=== PATIENT | male | born 1970 | race Caucasian/White ===

== ENCOUNTER 2016-09-23 09:12 | Emergency (ER) | payer MEDICAID ==
[2016-09-23 09:19] VITALS: TEMP 97.2
[2016-09-23] MEDS ORDERED: METOCLOPRAMIDE 10 MG/2 ML VIAL IVP ONE (09:40)
[2016-09-23] MEDS ORDERED: NS 1,000 ML IV ONE (09:40)
[2016-09-23] MEDS ORDERED: DEXAMETHASONE 10 MG/ML VIAL IVP ONE (09:40)
--- NOTE | 2016-09-23 09:45 | EDPHY ---
H & P Stated Complaint: "persistent migraine" h/a started 3 days ago no trauma, hx migraines Source: Patient Exam Limitations: No limitations - Personal History Current Tetanus/Diphtheria Vaccine: Yes Current Tetanus Diphtheria and Acellular Pertussis (TDAP): Yes Tetanus Vaccine Date: 2009 - Medical/Surgical History Hx Asthma: Yes Hx Chronic Respiratory Disease: No Hx Diabetes: No Hx Cardiac Disease: No Hx Renal Disease: No Hx Cirrhosis: No Hx Alcoholism: Yes Hx HIV/AIDS: No Hx Splenectomy or Spleen Trauma: No Other PMH: depression- with previous suicide attempts,anxiety disorder, pancreatitis,. "migraines" - Social History Smoking Status: Never smoked HPI/ROS: CHIEF COMPLAINT: Headache HISTORY OF PRESENT ILLNESS: Patient complains of headache that started around 12:00 p.m. on Saturday. This is while he was at home. It was frontal on the right hemisphere. [id number] but steadily worsening. Constant duration. Some nausea. No vomiting. Some photophobia and phonophobia. No neck pain or stiffness. No sudden onset. This is not the worst headache of his life. It is typical for his migraine headaches that he usually gets, which is typically once a week. No fever or chills. No chest pain or shortness of breath. No abdominal complaints. He has tried caffeine and Tylenol without any improvement. No other associated complaints or modifying factors. REVIEW OF SYSTEMS: Ten systems reviewed and are negative unless otherwise noted in the HPI PAST MEDICAL HISTORY: Migraine headaches, bipolar disorder, hypertension SOCIAL HISTORY: Nonsmoker. 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 Lives in [place]. FAMILY HISTORY: Noncontributory EXAMINATION General Appearance: Alert, no distress Head: normocephalic, atraumatic Eyes: Pupils equal and round, no conjunctival pallor or injection. EOMs intact. No nystagmus or dysconjugate gaze. ENT, Mouth: Mucous membranes moist. Airway widely patent Neck: Normal inspection, supple, non-tender. Painless range of motion all planes. No meningismus or rigidity. Respiratory: Lungs are clear to auscultation. No wheezing, rhonchi or crackles Cardiovascular: Regular rate and rhythm. No murmur. Pulses intact distally. Gastrointestinal: Abdomen is soft and nontender Back: non-tender, no bony abnormalities Neurological: GCS 15. Cranial nerves 2-12 grossly intact. A&O, nonfocal, normal gait. No dysmetria. No pronator drift. Strength is 5/5 in all 4 limbs. Normal mental status. Skin: Warm and dry, no rash. No petechiae or purpura Extremities: Nontender, no pedal edema Psychiatric: Mood and affect normal DIFFERENTIAL DIAGNOSES: Including but not limited to migraine headache, hemispheric migraine, atypical migraine, meningitis, meningismus, cluster headache, tension headache MDM: 9:40 a.m. Headache in a patient with a history of migraine headaches. This headache is described as typical for him. It was not sudden onset. It is not worst headache of his life. He has no meningismus or rigidity. Vital signs are stable and neuro exam is normal. I have ordered IV fluid, dexamethasone, Reglan and Benadryl. Plan for Toradol if kidney function is normal. He is resting comfortably in no acute distress. 10:20 a.m. Renal function is within normal limits. Thus I have ordered IV Toradol. 11:00 a.m. I have re-evaluated the patient. His headache is not improved. His neuro examination remains normal. I have ordered further pain medication. 12:15 p.m. I have re-evaluated the patient. He is feeling better but not significantly. I have ordered 1 more dose pain medication. I offered admission to the hospital for intractable headache but he has declined. He would like to try and go home on oral pain medication. I do agree stable to do so. No meningitis or evidence of infection. No evidence of subarachnoid hemorrhage. Discharged home stable condition with pain medications in ED precautions. Follow up with primary care physician and Neurology SUPERVISION: Patient was evaluated in conjunction with the supervising physician. Please see their note for details. (Marquis Rodriguez) Constitutional: Initial Vital Signs Temperature (C) 36.2 C 09/23/16 09:16 Heart Rate 111 H 09/23/16 09:16 Respiratory Rate 16 09/23/16 09:16 Blood Pressure 158/126 H 09/23/16 09:16 O2 Sat (%) 96 09/23/16 09:16 O2 Delivery Mode Room Air O2 (L/minute) 2 Allergies/Adverse Reactions: tomato [Tomato] Allergy (Intermediate, Verified 06/12/15 13:32) Hives No Allergies [NKDA] Allergy (Verified 06/12/15 13:32) Home Medications: Medication Instructions Recorded Zolpidem Tartrate [Ambien (RX)] 5 - 10 mg PO DAILY20 06/17/11 QUEtiapine FUMARATE [Seroquel 1,200 mg PO DAILY 08/08/12 300mg (RX)] Lisinopril 20 mg PO DAILY #30 tablet 03/02/15 Omeprazole 03/02/15 Albuterol 09/23/16 Codeine/Butalbit/Acetamin/Caff 1 each PO Q6 PRN #12 capsule 09/23/16 [Fioricet-Cod 74-16-111-40 Cap] LaMICtal 09/23/16 Medical Decision Making ED Course/Re-evaluation: I did not see this patient while he was in the emergency department. However his care was discussed with the PA while the patient was in the emergency department. I agree with treatment plan and management (Reg Klein) - Data Points Laboratory Results: Laboratory Results 09/23/16 09:30 09/23/16 09:30 09/23/16 09/23/16 09:30 09:30 WBC 6.70 10^3/uL 10^3/uL (3.80-9.50) RBC 4.97 10^6/uL 10^6/uL (4.40-6.38) Hgb 14.6 g/dL g/dL (13.7-17.5) Hct 44.4 % % (40.0-51.0) MCV 89.3 fL fL (81.5-99.8) MCH 29.4 pg pg (27.9-34.1) MCHC 32.9 g/dL g/dL (32.4-36.7) RDW 14.0 % % (11.5-15.2) Plt Count 214 10^3/uL 10^3/uL (150-400) Sodium 141 mEq/L mEq/L (134-144) Potassium 4.4 mEq/L mEq/L (3.5-5.2) Chloride 109 mEq/L mEq/L (97-110) Carbon Dioxide 18 mEq/l L mEq/l (22-31) Anion Gap 14 mEq/L mEq/L (8-16) BUN 13 mg/dL mg/dL (7-23) Creatinine 1.2 mg/dL mg/dL (0.7-1.3) Estimated GFR > 60 Glucose 172 mg/dL H mg/dL (70-100) Calcium 9.9 mg/dL mg/dL (8.5-10.4) Medications Given: Discontinued Medications Dexamethasone (Decadron Injection) 10 mg IVP EDNOW ONE Stop: 09/23/16 09:41 Last Admin: 09/23/16 09:46 Dose: 10 mg Diphenhydramine HCl (Benadryl Injection) 25 mg IVP EDNOW ONE Stop: 09/23/16 09:41 Last Admin: 09/23/16 09:46 Dose: 25 mg Hydromorphone HCl (Dilaudid) 0.5 mg IVP EDNOW ONE Stop: 09/23/16 11:00 Last Admin: 09/23/16 11:03 Dose: 0.5 mg Hydromorphone HCl (Dilaudid) 0.5 mg IVP EDNOW ONE Stop: 09/23/16 12:15 Last Admin: 09/23/16 12:34 Dose: 0.5 mg Sodium Chloride (Ns) 1,000 mls @ 0 mls/hr IV ONCE ONE; Wide Open PRN Reason: Protocol Stop: 09/23/16 09:41 Last Admin: 09/23/16 09:46 Dose: 1,000 mls Ketorolac Tromethamine (Toradol) 30 mg IVP EDNOW ONE Stop: 09/23/16 10:20 Last Admin: 09/23/16 10:23 Dose: 30 mg Metoclopramide HCl (Reglan Injection) 10 mg IVP EDNOW ONE Stop: 09/23/16 09:41 Last Admin: 09/23/16 09:46 Dose: 10 mg Departure - Departure Disposition: Home, Routine, Self-Care Clinical Impression: Acute headache Qualifiers: Headache type: unspecified Intractability: not intractable Qualified Code(s): R51 - Headache Condition: Good Instructions: Migraine Headache (ED), Acute Headache (ED) Additional Instructions: 1. Medications as prescribed as needed 2. Follow up with primary care physician tomorrow or Saturday 3. Return to ER for worsening pain, sudden change in the pain, fever, neck pain or stiffness Referrals: Coco Danielle NP [Primary Care Provider] - As per Instructions Rancho Rosado DO [Doctor of Osteopathy] - As per Instructions Prescriptions: Codeine/Butalbit/Acetamin/Caff [Fioricet-Cod [id number] Cap] 1 each PO Q6 PRN #12 capsule PRN Reason: Headache
[2016-09-23 09:46] LABS: HEMATOCRIT 44.4 % (40.0-51.0); HEMOGLOBIN 14.6 g/dL (13.7-17.5); MEAN CELL HEMOGLOBIN 29.4 pg (27.9-34.1); MEAN CELL HEMOGLOBIN CONCENTR. 32.9 g/dL (32.4-36.7); MEAN CELL VOLUME 89.3 fL (81.5-99.8); RED BLOOD CELL COUNT 4.97 10^6/uL (4.40-6.38)
[2016-09-23 09:57] LABS: ANION GAP 14 mEq/L (8-16); CALCIUM 9.9 mg/dL (8.5-10.4); CARBON DIOXIDE 18 mEq/l (22-31); CHLORIDE 109 mEq/L (97-110); CREATININE 1.2 mg/dL (0.7-1.3); GLOMERULAR FILTRATION RATE > 60; GLUCOSE 172 mg/dL (70-100); POTASSIUM 4.4 mEq/L (3.5-5.2); SODIUM 141 mEq/L (134-144)
[2016-09-23] MEDS ORDERED: KETOROLAC 30 MG/1 ML SDV IVP ONE (10:19)
[2016-09-23] MEDS ORDERED: KETOROLAC 15 MG/1 ML SDV ONE (10:19)
[2016-09-23] MEDS ORDERED: HYDROmorphONE/DILAUDID 1 MG/ML SYR IVP ONE ×2 (10:59→12:14)
[2016-09-23] MEDS ORDERED: HYDROmorphONE/DILAUDID 1 MG/ML SYR ONE (11:00)
[2016-09-23 11:33] VITALS: PULSE 92
[2016-09-23 13:01] VITALS: BP 149/93; RESP 16; O2SAT 95
== END 2016-09-23 13:01 | disposition home or self-care (01) ==
DX: R51 Headache (principal); J45.909 Unspecified asthma, uncomplicated; I10 Essential (primary) hypertension
CPT/HCPCS: 96374; J1100; J1170; J1200; J1885; J2765

== ENCOUNTER 2016-11-06 10:07 | Emergency (ER) | payer MEDICAID ==
[2016-11-06] MEDS ORDERED: DEXAMETHASONE 10 MG/ML VIAL IVP ONE (10:25)
[2016-11-06] MEDS ORDERED: KETOROLAC 30 MG/1 ML SDV IVP ONE (10:25)
[2016-11-06] MEDS ORDERED: NS 1,000 ML IV ONE (10:25)
[2016-11-06] MEDS ORDERED: ONDANSETRON 4 MG/2 ML VIAL IVP ONE (10:26)
--- NOTE | 2016-11-06 10:46 | EDPHY ---
H & P Time Seen by Provider: 11/06/16 10:20 HPI/ROS: CHIEF COMPLAINT: Headache HISTORY OF PRESENT ILLNESS: 46-year-old male presents to the emergency department by private vehicle complaining of headache. Patient has a history of migraine headaches. Developed gradual onset of a headache yesterday morning. He feels that this is the same typical "migraine" headache that he usually gets. He is photophobic. He denies any other change in vision such as double or blurry vision. He feels nauseous although no vomiting. No diarrhea. No neck pain. No reported trauma. He took some Excedrin yesterday and drank Red Bull. This did help but then his headache came back. He denies any feelings of weakness or numbness or tingling in his upper or lower extremities. Denies any other symptoms. States he typically gets headaches twice a week. He does not have a neurologist. REVIEW OF SYSTEMS: Constitutional: No fever, no chills. Eyes: No double or blurry vision. ENT: No sore throat. Respiratory: No cough, no shortness of breath. Cardiac: No chest pain. Gastrointestinal: No abdominal pain, vomiting or diarrhea. Genitourinary: No dysuria. Musculoskeletal: No neck or back pain. Skin: No rashes. Neurological: headache. Past Medical/Surgical History: Migraine headaches, depression, hypertension Social History: Single and lives in [place] Smoking Status: Never smoked Physical Exam: General Appearance: Alert, no distress. Mentating normally and answering questions appropriately. Eyes: Pupils equal and round. Extraocular motions are all intact. ENT: Mouth: Mucous membranes moist. Respiratory: No wheezing, rhonchi, or rales, lungs are clear to auscultation. Cardiovascular: Regular rate and rhythm. Gastrointestinal: Abdomen is soft and nontender, no masses, no rebound or guarding, bowel sounds normal. Neurological: Alert and oriented x 3, cranial nerves II through XII grossly intact Skin: Warm and dry, no rashes. Musculoskeletal: Nontender to palpate along the cervical, thoracic or lumbar spine. Neck is supple. Extremities: Full range of motion and no peripheral edema. Psychiatric: Patient is oriented X 3, there is no agitation. Constitutional: Initial Vital Signs Temperature (C) 36.4 C 11/06/16 10:12 Heart Rate 100 11/06/16 10:12 Respiratory Rate 18 11/06/16 10:12 Blood Pressure 129/110 H 11/06/16 10:12 O2 Sat (%) 94 11/06/16 10:12 O2 Delivery Mode Room Air Allergies/Adverse Reactions: tomato [Tomato] Allergy (Intermediate, Verified 11/06/16 10:11) Hives No Allergies [NKDA] Allergy (Verified 11/06/16 10:11) Home Medications: Medication Instructions Recorded Zolpidem Tartrate [Ambien (RX)] 5 - 10 mg PO DAILY20 06/17/11 QUEtiapine FUMARATE [Seroquel 1,200 mg PO DAILY 08/08/12 300mg (RX)] Lisinopril 20 mg PO DAILY #30 tablet 03/02/15 Omeprazole 03/02/15 Albuterol 09/23/16 LaMICtal 09/23/16 Medical Decision Making ED Course/Re-evaluation: 46-year-old male with a history of migraine headaches presents with a typical migraine headache complaining of frontal pain and pain behind his eyes. This is common for him. He had an IV established and was given Toradol, Decadron, IV Benadryl, and Zofran. He also received IV normal saline. Patient was re-evaluated and still continued plane of ongoing headache. He did not feel much relief from the migraine cocktail that was given. He was given 0.5 mg of IV Dilaudid and 10 mg of Reglan IV. He was feeling much better. He is comfortable being discharged home. The patient has a history of hypertension and takes 10 mg lisinopril. I encouraged to have close follow-up with primary care provider since his blood pressure is still quite elevated. I also encouraged him to keep a blood pressure log to help keep track of his readings. Patient verbalized understanding and agreed. I do not think imaging studies are indicated. The patient has a history of frequent and chronic headaches and this feels like his same typical pattern. I did give him a Neurology referral. Differential Diagnosis: Headache including but not limited to subarachnoid hemorrhage, migraine headache , tension headache and infectious causes such as meningitis, pharyngitis and sinusitis. - Data Points Medications Given: Discontinued Medications Dexamethasone (Decadron Injection) 10 mg IVP EDNOW ONE Stop: 11/06/16 10:26 Last Admin: 11/06/16 10:34 Dose: 10 mg Diphenhydramine HCl (Benadryl Injection) 25 mg IVP EDNOW ONE Stop: 11/06/16 10:26 Last Admin: 11/06/16 10:33 Dose: 25 mg Hydromorphone HCl (Dilaudid) 0.5 mg IVP EDNOW ONE Stop: 11/06/16 12:39 Last Admin: 11/06/16 12:43 Dose: 0.5 mg Sodium Chloride (Ns) 1,000 mls @ 0 mls/hr IV ONCE ONE; Wide Open PRN Reason: Protocol Stop: 11/06/16 10:26 Last Admin: 11/06/16 10:46 Dose: 1,000 mls Ketorolac Tromethamine (Toradol) 30 mg IVP EDNOW ONE Stop: 11/06/16 10:26 Last Admin: 11/06/16 10:34 Dose: 30 mg Metoclopramide HCl (Reglan Injection) 10 mg IVP EDNOW ONE Stop: 11/06/16 12:39 Last Admin: 11/06/16 12:43 Dose: 10 mg Ondansetron HCl (Zofran) 4 mg IVP EDNOW ONE Stop: 11/06/16 10:27 Last Admin: 11/06/16 10:34 Dose: 4 mg Departure - Departure Disposition: Home, Routine, Self-Care Clinical Impression: Headache Qualifiers: Headache type: unspecified Headache chronicity pattern: acute headache Intractability: not intractable Qualified Code(s): R51 - Headache Condition: Good Instructions: How to Take a Blood Pressure (ED), Acute Headache (ED), Chronic Hypertension (ED), Hypertensive Crisis (ED) Additional Instructions: You should follow up with your primary care provider regarding your elevated blood pressure. Monitor your blood pressure at home and at work and bring those readings with you to your appointment. You should follow up with her neurologist regarding her frequent headaches. Referrals: Coco Danielle NP [Primary Care Provider] - As per Instructions Rodrigo Montaño DO [Medical Doctor] - As per Instructions (Neurologist on-call)
[2016-11-06] MEDS ORDERED: METOCLOPRAMIDE 10 MG/2 ML VIAL IVP ONE (12:38)
[2016-11-06] MEDS ORDERED: HYDROmorphONE/DILAUDID 1 MG/ML INJ IVP ONE (12:38)
[2016-11-06 13:23] VITALS: RESP 16
[2016-11-06 13:34] VITALS: BP 139/102; PULSE 78; TEMP 98.8; O2SAT 96
== END 2016-11-06 13:34 | disposition home or self-care (01) ==
DX: R51 Headache (principal); I10 Essential (primary) hypertension; E86.9 Volume depletion, unspecified
CPT/HCPCS: 96374; J1100; J1170; J1200; J1885; J2405; J2765

== ENCOUNTER 2018-05-20 15:14 | Emergency (ER) | payer MEDICAID ==
[2018-05-20] MEDS ORDERED: KETOROLAC 30 MG/1 ML SDV IVP ONE (15:27)
[2018-05-20] MEDS ORDERED: METOCLOPRAMIDE 10 MG/2 ML VIAL IVP ONE (15:27)
[2018-05-20] MEDS ORDERED: NS 1,000 ML IV ONE ×2 (15:27→17:22)
[2018-05-20] MEDS ORDERED: DEXAMETHASONE 10 MG/ML VIAL IVP ONE (15:27)
--- NOTE | 2018-05-20 15:30 | EDPHY ---
H & P Stated Complaint: c/o cold sx/tony x 5 days Time Seen by Provider: 05/20/18 15:24 HPI/ROS: CHIEF COMPLAINT: Cold, migraine HISTORY OF PRESENT ILLNESS: The patient is a 48-year-old man who comes to the emergency department complaining of cold-like symptoms for the last 5 days consisting of fevers chills, runny nose and sore throat. The patient states that he has also developed a migraine now over the last day or 2 that he thinks is secondary to the cold. He states that he has migraines frequently in that this is typical of his migraines. He denies neck stiffness or pain. He is currently afebrile. He has not been taking antipyretics today. No rashes. No trauma. He Did not get a flu shot this year. He states that he is hoping to get antibiotics. He states that he is on a bicycle and has been to 2 urgent cares before coming here but they would not take Medicaid. Severity: Moderate Modifying factors: None REVIEW OF SYSTEMS: Constitutional: See HPI EENTM: Is see HPI Respiratory: denies: cough, shortness of breath Cardiac: denies: chest pain, irregular heart rate, lightheadedness, palpitations Gastrointestinal/Abdominal: denies: abdominal pain, diarrhea, nausea, vomiting, blood streaked stools Genitourinary: denies: dysuria, frequency, hematuria, pain Musculoskeletal: denies: joint pain, muscle pain Skin: denies: lesions, rash, jaundice, bruising Neurological: See HPI denies: numbness, paresthesia, tingling, dizziness, weakness Hematologic/Lymphatic: denies: blood clots, easy bleeding, easy bruising Immunologic/allergic: denies: HIV/AIDS, transplant 10 systems reviewed and negative except as noted EXAM: GENERAL: Well-appearing, well-nourished and in no acute distress. HEAD: Atraumatic, normocephalic. EYES: Pupils equal round and reactive to light, extraocular movements intact, sclera anicteric, conjunctiva are normal. ENT: TMs normal, nares patent, oropharynx clear without exudates. Slightly dry mucous membranes. NECK: Normal range of motion, supple without lymphadenopathy or JVD. LUNGS: Breath sounds clear to auscultation bilaterally and equal. No wheezes rales or rhonchi. HEART: Regular rate and rhythm without murmurs, rubs or gallops. ABDOMEN: Soft, nontender, normoactive bowel sounds. No guarding, no rebound. No masses appreciated. BACK: No CVA tenderness, no spinal tenderness, step-offs or deformities EXTREMITIES: Normal range of motion, no pitting or edema. No clubbing or cyanosis. NEUROLOGICAL: Cranial nerves II through XII grossly intact. Normal speech, normal gait. 5/5 strength, normal movement in all extremities, normal sensation , normal reflexes PSYCH: Normal mood, normal affect. SKIN: Warm, dry, normal turgor, no visible rashes or lesions. Source: Patient Exam Limitations: No limitations - Personal History Tetanus Vaccine Date: 2009 - Medical/Surgical History Hx Asthma: Yes Hx Chronic Respiratory Disease: No Hx Diabetes: No Hx Cardiac Disease: Yes Hx Renal Disease: No Hx Cirrhosis: No Hx Alcoholism: Yes Hx HIV/AIDS: No Hx Splenectomy or Spleen Trauma: No Other PMH: depression- with previous suicide attempts,anxiety disorder, pancreatitis, migraines, hypertension, asthma - Family History Significant Family History: No pertinent family hx - Social History Smoking Status: Never smoked Alcohol Use: None Constitutional: Initial Vital Signs Heart Rate 118 H 05/20/18 15:17 Respiratory Rate 18 05/20/18 15:17 Blood Pressure 176/135 H 05/20/18 15:17 O2 Sat (%) 95 05/20/18 15:17 O2 Delivery Mode Room Air Allergies/Adverse Reactions: tomato [Tomato] Allergy (Intermediate, Verified 05/20/18 15:22) Hives Home Medications: Medication Instructions Recorded Zolpidem Tartrate [Ambien (RX)] 5 - 10 mg PO DAILY20 06/17/11 QUEtiapine FUMARATE [Seroquel 1,200 mg PO DAILY 08/08/12 300mg (RX)] Lisinopril 20 mg PO DAILY #30 tablet 03/02/15 Omeprazole 03/02/15 Albuterol 09/23/16 LaMICtal 09/23/16 Amoxicillin/Clavulanate Pot 875 mg PO BID #14 tab 05/20/18 [Augmentin 875Mg] Medical Decision Making - Diagnostics Imaging: Discussed imaging studies w/ call person Radiologist ED Course/Re-evaluation: The patient is well-appearing and is here requesting antibiotics. He does not have a fever however he is slightly tachycardic and appears dehydrated. Will hydrate and treat for migraine medications. He declines headache workup. Will observe and re-evaluate for fevers. CT head ordered due to patient's significant headache as well as tachycardia to rule out abscess or sinus thrombosis. Sinusitis present. Will start on Augmentin due to comorbidities and worsening systemic symptoms. The patient is eager to go and declines any further workup or testing. Differential Diagnosis: Partial list of the Differential diagnosis considered include but were not limited to; sinusitis, viral syndrome, migraine and although unlikely based on the history and physical exam, I also considered meningitis, tumor, venous sinus thrombosis, abscess. I discussed these differential diagnoses and the plan with the patient as well as the usual and expected course. The patient understands that the diagnosis is provisional and that in medicine we are not always correct and that further workup is often warranted. Usual and customary warnings were given. All of the patient's questions were answered. The patient was instructed to return to the emergency department should the symptoms at all worsen or return, otherwise to followup with the physician as we discussed. - Data Points Laboratory Results: Laboratory Results 05/20/18 16:00 05/20/18 16:00 05/20/18 Unknown Group A Strep DNA NEGATIVE (NEGATIVE) Medications Given: Discontinued Medications Amoxicillin/Clavulanate Potassium (Augmentin 875mg) 875 mg PO EDNOW ONE PRN Reason: Protocol Stop: 05/20/18 18:18 Last Admin: 05/20/18 18:20 Dose: 875 mg Dexamethasone (Decadron Injection) 10 mg IVP EDNOW ONE Stop: 05/20/18 15:28 Last Admin: 05/20/18 16:18 Dose: 10 mg Haloperidol Lactate (Haldol Injection) 5 mg IVP EDNOW ONE Stop: 05/20/18 17:22 Last Admin: 05/20/18 17:35 Dose: 5 mg Sodium Chloride (Ns) 1,000 mls @ 0 mls/hr IV ONCE ONE; Wide Open PRN Reason: Protocol Stop: 05/20/18 15:28 Last Admin: 05/20/18 16:00 Dose: 1,000 mls Magnesium Sulfate (Magnesium Sulf 2 Gm (Premix)) 50 mls @ 50 mls/hr IV EDNOW ONE Stop: 05/20/18 18:20 Last Admin: 05/20/18 17:35 Dose: 50 mls Sodium Chloride (Ns) 1,000 mls @ 0 mls/hr IV EDNOW ONE; Wide Open PRN Reason: Protocol Stop: 05/20/18 17:23 Last Admin: 05/20/18 17:32 Dose: 1,000 mls Ketorolac Tromethamine (Toradol) 30 mg IVP EDNOW ONE Stop: 05/20/18 15:28 Last Admin: 05/20/18 16:18 Dose: 30 mg Metoclopramide HCl (Reglan Injection) 10 mg IVP EDNOW ONE Stop: 05/20/18 15:28 Last Admin: 05/20/18 16:18 Dose: 10 mg Departure - Departure Disposition: Home, Routine, Self-Care Clinical Impression: Acute bacterial sinusitis Condition: Fair Instructions: Sinusitis (ED) Referrals: Coco Danielle [employer]ESS [Primary Care Provider] - As per Instructions Prescriptions: Amoxicillin/Clavulanate Pot [Augmentin 875Mg] 875 mg PO BID #14 tab
[2018-05-20 16:17] LABS: PLATELET COUNT 216 10^3/uL (150-400)
[2018-05-20] MEDS ORDERED: HALOPERIDOL LACT 5 MG/ML INJ IVP ONE (17:21)
[2018-05-20] MEDS ORDERED: MAGNESIUM SULF 2 GM/WATER 50 ML IV ONE (17:21)
[2018-05-20] MEDS ORDERED: AMOXICILLIN/CLAVULANATE POT 875/125 MG TAB PO ONE (18:17)
[2018-05-20 18:24] VITALS: BP 180/126
== END 2018-05-20 18:28 | disposition home or self-care (01) ==
DX: J01.90 Acute sinusitis, unspecified (principal)
CPT/HCPCS: 96374; J1100; J1630; J1885; J2765; J3475